=== PATIENT | female | born 1950 | race African-American/Black ===

== ENCOUNTER 2019-09-22 10:49 | Inpatient (IN) | payer OTHER, BC ==
--- NOTE | 2019-09-22 12:10 | PDOC ---
*Physical Exam - Vital Signs Last Vital Signs Temp Pulse Resp BP Pulse Ox 98.6 F 91 H 18 129/81 96 09/22/19 11:00 09/22/19 11:00 09/22/19 11:00 09/22/19 11:00 09/22/19 11:00 ED Treatment Course - LABORATORY CBC & Chemistry Diagram: 09/22/19 13:50 09/22/19 13:50 Medical Decision Making - Medical Decision Making 09/22/19 12:35 69 y/o female with HTN, B/L pleural effusions (20 years previous) here today with one day h/o R sided chest pain, "gas" like pain. No relief of pain with antacids Pain worse with breathing, non-radiating, tender to palpation. Discharge - Discharge Information Clinical Impression/Diagnosis: Chest pain Condition: Stable - Follow up/Referral Referrals: Enoch Hensley [Primary Care Provider] - - Patient Discharge Instructions - Post Discharge Activity
--- NOTE | 2019-09-22 12:44 | PDOC ---
History of Present Illness - General Chief Complaint: Chest Pain Stated Complaint: SOB/CHEST PAIN Time Seen by Provider: 09/22/19 11:39 History Source: Patient Exam Limitations: No Limitations - History of Present Illness Initial Comments: 09/22/19 12:43 Cony Pearl is a 69F with PMH HTN, idiopathic bilateral pulmonary effusions, presenting with one day constant chest pain under R breast. 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 Unable to take deep breaths due to the pain, pain worse with deep breathing. No trauma to chest. Denies any upper chest pain, palpitations, nausea, vomiting, constipation, diarrhea. Had normal BM earlier today. Sayelvin had a similar pain 20 years ago when she had bilateral pleural effusions and was diuresed in the hospital. Has chronic RLE swelling which her PMD at [facility] says is lymphedema. Gets cardiac eval every year, had a syncopal episode a few years ago, reports no findings from yearly ECG. Denies hormone use, recent travel, history of blood clots, cancer. Daily med is Diovan. Allergy to cefaclor. Denies tobacco/drug/alcohol use. Past History - Past Medical History Allergies/Adverse Reactions: Allergies Allergy/AdvReac Type Severity Reaction Status Date / Time cefaclor [From [facility], 1928–1983] Allergy Verified 09/22/19 10:58 Home Medications: Ambulatory Orders Valsartan/Hydrochlorothiazide [Diovan Hct 160-25 mg Tablet] 1 combo PO DAILY Potassium Bicarb/Mag Combo 21 [Magnesium Fizz-Plus Powder] 183 gm PO ASDIR 09/22 Simethicone [Gas Relief 80] 80 mg PO DAILY 09/22/19 COPD: No HTN: Yes - Psycho Social/Smoking Cessation Hx Smoking History: Never smoked Hx Alcohol Use: No Drug/Substance Use Hx: No Review of Systems - Review of Systems Able to Perform ROS?: Yes Constitutional: No: Chills, Fever HEENTM: No: Nose Pain, Nose Congestion Respiratory: Yes: Cough. No: Shortness of Breath, Wheezing, Productive cough Cardiac (ROS): Yes: Chest Pain, Edema. No: Lightheadedness, Palpitations, Syncope, Chest Tightness ABD/GI: No: Constipated, Diarrhea, Nausea, Poor Appetite, Poor Fluid Intake, Vomiting : No: Symptoms Reported Musculoskeletal: No: Symptoms Reported Integumentary: No: Symptoms Reported Neurological: No: Symptoms reported Endocrine: No: Symptoms Reported Hematologic/Lymphatic: No: Symptoms Reported All Other Systems: Reviewed and Negative *Physical Exam - Vital Signs Last Vital Signs Temp Pulse Resp BP Pulse Ox 98.6 F 91 H 18 129/81 96 09/22/19 11:00 09/22/19 11:00 09/22/19 11:00 09/22/19 11:00 09/22/19 11:00 - Physical Exam General Appearance: Yes: Nourished, Appropriately Dressed, Mild Distress, Obese HEENT: positive: EOMI, YOHAN, Normal ENT Inspection, Normal Voice, Symmetrical, Pharynx Normal, Hearing Grossly Normal. negative: Scleral Icterus (R), Scleral Icterus (L), Pharyngeal Erythema, Tonsillar Exudate, Tonsillar Erythema Neck: positive: Trachea midline, Supple. negative: Tender, Lymphadenopathy (R) , Lymphadenopathy (L) Respiratory/Chest: positive: Chest Tender (TTP below R breast, no evidence of rib fracture), Decreased Breath Sounds (shallow breathing bilaterally), Other ( no rash or bruising under R breast). negative: Normal Breath Sounds, Respiratory Distress, Accessory Muscle Use, Labored Respiration, Crackles, Rales , Rhonchi, Stridor, Wheezing Cardiovascular: positive: Regular Rhythm, Regular Rate. negative: Murmur Gastrointestinal/Abdominal: positive: Normal Bowel Sounds, Soft, Protuberent. negative: Tender, Organomegaly, Pulsatile Mass, Rebound Musculoskeletal: positive: Normal Inspection. negative: CVA Tenderness, Vertebral Tenderness Extremity: positive: Normal Capillary Refill, Normal Inspection, Normal Range of Motion, Pelvis Stable, Pedal Edema (1+ RLE), Swelling (1+ RLE), Other (gait normal). negative: Tender, Calf Tenderness Integumentary: positive: Normal Color, Dry, Warm Neurologic: positive: Fully Oriented, Alert, Normal Mood/Affect, Normal Response ED Treatment Course - LABORATORY CBC & Chemistry Diagram: 09/23/19 08:15 09/23/19 08:15 Medical Decision Making - Medical Decision Making 09/22/19 13:41 Patient has known history of pleural effusions and chronic RLE edema presenting with acute onset chest pain under her right breast that worsens with breathing. VS stable, exam finds TTP to right chest with shallow breathing 2/2 pain but breath sounds all barrientos, no crackles at bases but limited by shallow breath. Ddx includes repeat pleural effusion, PE, PNA, costochondritis, or GI pathology such as GB disease, pancreatitis. ACS less liekly given stable VS, reproducible pain, and constant pain for over 12 hours - CMP/CBC for eval infection - CP/ECG/CXR for eval ACS, pulmonary effusion - Coags for eval clotting - Ofirmev for pain CXR shows bibasilar atelectasis and pleural reaction with poor inspiratory effort, no obvious effusions. ECG shows NSR with HR 95, QRS 86, QTc 452, no TWI or ischemic changes. Bedside US shows small pleural effusions in lungs. Getting CTA and RLE US for evaluation of PE and effusions. 09/22/19 14:40 Labs notable for: - CMP WNL - CBC WNL - trop negative - Cr 1.1, stable for CTA 09/22/19 16:32 CTA read as probable left lower lobe semental embolism with bilbasilar atelectasis. RLE US shows no DVT. PE present in left lung but pleuritic pain under R breast, improved with Ofirmev but still present, possible costocondritis to R side on top of concurrent PE vs. referred pain. No obvious hepatic pathology noted on CT, labs , or PE. 09/22/19 16:40 Heaprin bolus 80/kg ordered with 18mg/kg/hr drip ordered. 09/22/19 17:40 Discussed case with kandi Givens for admission to his service to [facility] for PE and heparinization. Discharge - Discharge Information Problems reviewed: Yes Clinical Impression/Diagnosis: Chest pain Qualifiers: Chest pain type: chest pain on breathing Qualified Code(s): R07.1 - Chest pain on breathing Pulmonary embolism Qualifiers: Pulmonary embolism type: single subsegmental (without acute cor pulmonale) Qualified Code(s): I26.93 - Single subsegmental pulmonary embolism without acute cor pulmonale Condition: Stable - Follow up/Referral - Patient Discharge Instructions - Post Discharge Activity
[2019-09-22] MEDS ORDERED: ACETAMINOPHEN 1000 MG/100 ML VIAL (NON FORMULARY) IVPB ONE (13:00)
[2019-09-22] MEDS ORDERED: ACETAMINOPHEN INJECTION 100 ML IVPB ONE (13:24)
[2019-09-22 14:09] LABS: BASO % 0.3 % (0-2.0); EOS % 0.3 % (0-4.5); HEMATOCRIT 39.1 % (32.4-45.2); HEMOGLOBIN 13.4 GM/dL (10.7-15.3); LYMPH % 17.8 % (8-40); MCH 32.5 pg (25.7-33.7); MCHC 34.4 g/dl (32.0-36.0); MEAN CELL VOLUME 94.5 fl (80-96); MEAN PLT VOLUME 7.5 fl (7.5-11.1); MONO % 10.5 % (3.8-10.2); NEUT % 71.1 % (42.8-82.8); PLATELET COUNT 295 K/MM3 (134-434); RBC 4.14 M/mm3 (3.60-5.2); RDW 12.6 % (11.6-15.6); WHITE BLOOD COUNT 7.6 K/mm3 (4.0-10.0)
[2019-09-22 14:22] LABS: INR 1.15 (0.83-1.09); PROTHROMBIN TIME (PATIENT) 13.6 SEC (9.7-13.0)
[2019-09-22 14:24] LABS: ACTIVATED PTT 26.6 SECONDS (25.2-36.5)
[2019-09-22 14:40] LABS: ALBUMIN 3.7 g/dl (3.4-5.0); ALK PHOS 92 U/L (45-117); ANION GAP 7 MMOL/L (8-16); BILIRUBIN,TOTAL 0.9 mg/dL (0.2-1); BLOOD UREA NITROGEN 9.9 mg/dL (7-18); CALCIUM 8.9 mg/dL (8.5-10.1); CHLORIDE 102 mmol/L (98-107); CO2 30 mmol/L (21-32); CREATININE 1.1 mg/dL (0.55-1.3); GLUCOSE,RANDOM 93 mg/dL (74-106); LIPASE 83 U/L (73-393); POTASSIUM 3.5 mmol/L (3.5-5.1); SGOT/AST 21 U/L (15-37); SGPT/ALT 27 U/L (13-61); SODIUM 138 mmol/L (136-145); TOT PROT 7.6 g/dl (6.4-8.2)
--- NOTE | 2019-09-22 15:42 | PDOC ---
Documentation entered by Ricardo Arias SCRIBE, acting as scribe for Jules Lozada MD. Jules Lozada MD: This documentation has been prepared by the Hugo valladares Xhesika, SCRIBE, under my direction and personally reviewed by me in its entirety. I confirm that the documentation accurately reflects all work, treatment, procedures, and medical decision making performed by me. Attending Attestation - Resident Resident Name: Reji Green - ED Attending Attestation I have performed the following: I have examined & evaluated the patient, The case was reviewed & discussed with the resident, I agree w/resident's findings & plan, Exceptions are as noted - HPI HPI: 09/22/19 12:47 The patient is a 69 year old female, with a PMH of HTN and bilateral effusion who presents to the ED for right sided chest pain and SOB. Pt describes her pain as sharp, severe pain, worsened with deep inspiration and when laying down. The patient denies headaches and dizziness. Denies fever, chills, cough, nausea , vomiting, and constipation. Denies frequency, urgency and hematuria. Allergy: cefaclor Social: Denies alcohol, cigarette or drug use. PCP: Sylvia Davidson - Physicial Exam PE: 09/22/19 12:49 Vitals: Triage Vital signs reviewed General Appearance: no acute distress, well nourished well developed, Neck: Supple;No Nuchal rigidity Chest Wall: Nontender Cardiac: Regular rate and rhythm, no murmurs, no rubs, no gallops, Lungs: + shallow breathes. + Pain with deep inspiration. Clear to auscultation bilaterally Abdomen: +Severe RUQ pain TTP. Soft, nondistended, normal bowel sounds Extremities: Full range of motion to all extremities, no cyanosis, clubbing, or edema Skin: Warm and dry, no rashes or lesions, no petechiae Psych: normal mood, normal affect - Medical Decision Making 09/22/19 16:57 Moderate to severe right lung discomfort CTA ith evidence of subsegmental PE Given persistence of pain and unclear etiology of pleural effusion will admit to medicine for further management
[2019-09-22] MEDS ORDERED: HEPARIN NA (PORCINE) 5,000 UNITS/ML 1ML VIAL IVPUSH ONE (16:35)
[2019-09-22] MEDS ORDERED: HEPARIN INFUSION - 25,000 UNITS/500 ML INFUS.BAG IVPB ONE (17:08)
[2019-09-22] MEDS ORDERED: HEPARIN NA (PORCINE) 5,000 UNITS/ML 1ML VIAL ONE (17:08)
[2019-09-22] MEDS: HEPARIN SOD,PORK IN 0.45% NACL 25,000 UNITS/500 ML INFUS.BAG IVPB SCH (17:38)
--- NOTE | 2019-09-22 18:19 | HP ---
CHIEF COMPLAINT:Left-sided chest pain for last 1 to 2 days PCP: HISTORY OF PRESENT ILLNESS:Cony Pearl is a 69F with PMH HTN, idiopathic bilateral pulmonary effusions, presenting with one day constant chest pain under R breast. 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 Unable to take deep breaths due to the pain, pain worse with deep breathing. No trauma to chest. Denies any upper chest pain, palpitations, nausea, vomiting, constipation, diarrhea. Had normal BM earlier today. Annette had a similar pain 20 years ago when she had bilateral pleural effusions and was diuresed in the hospital. Has chronic RLE swelling which her PMD at [facility] says is lymphedema. Gets cardiac eval every year, had a syncopal episode a few years ago, reports no findings from yearly ECG. Denies hormone use, recent travel, history of blood clots, cancer ER course was notable for:Chest pain on the right side under the breast but pain on the pulmonary embolism on the left side (1) (2) (3) Recent Travel:None PAST MEDICAL HISTORY:Hypertension and idiopathic pulmonary effusion both sides PAST SURGICAL HISTORY:None Social History:No history of smoking alcohol or drug use Smoking: Alcohol: Drugs: Allergies cefaclor [From [facility]] Allergy (Verified 09/22/19 10:58) HOME MEDICATIONS: Home Medications Medication Instructions Recorded Valsartan/Hydrochlorothiazide 1 combo PO DAILY 03/15/16 [Diovan Hct 160-25 mg Tablet] Potassium Bicarb/Mag Combo 21 183 gm PO ASDIR 09/22/19 [Magnesium Fizz-Plus Powder] Simethicone [Gas Relief 80] 80 mg PO DAILY 09/22/19 REVIEW OF SYSTEMS CONSTITUTIONAL: Absent: fever, chills, diaphoresis, generalized weakness, malaise, loss of appetite, weight change HEENT: Absent: rhinorrhea, nasal congestion, throat pain, throat swelling, difficulty swallowing, mouth swelling, ear pain, eye pain, visual changes CARDIOVASCULAR: Presentt chest pain, Absent syncope, palpitations, irregular heart rate, lightheadedness, peripheral edema RESPIRATORY: Absent: cough, shortness of breath, dyspnea with exertion, orthopnea, wheezing, stridor, hemoptysis GASTROINTESTINAL: Absent: abdominal pain, abdominal distension, nausea, vomiting, diarrhea, constipation, melena, hematochezia GENITOURINARY: Absent: dysuria, frequency, urgency, hesitancy, hematuria, flank pain, genital pain MUSCULOSKELETAL: Absent: myalgia, arthralgia, joint swelling, back pain, neck pain SKIN: Absent: rash, itching, pallor HEMATOLOGIC/IMMUNOLOGIC: Absent: easy bleeding, easy bruising, lymphadenopathy, frequent infections ENDOCRINE: Absent: unexplained weight gain, unexplained weight loss, heat intolerance, cold intolerance NEUROLOGIC: Absent: headache, focal weakness or paresthesias, dizziness, unsteady gait, seizure, mental status changes, bladder or bowel incontinence PSYCHIATRIC: Absent: anxiety, depression, suicidal or homicidal ideation, hallucinations. PHYSICAL EXAMINATION Vital Signs - 24 hr 09/22/19 11:00 Temperature 98.6 F Pulse Rate 91 H Respiratory 18 Rate Blood Pressure 129/81 O2 Sat by Pulse 96 Oximetry (%) GENERAL: Awake, alert, and fully oriented, in no acute distress. HEAD: Normal with no signs of trauma. EYES: Pupils equal, round and reactive to light, extraocular movements intact, sclera anicteric, conjunctiva clear. No lid lag. EARS, NOSE, THROAT: Ears normal, nares patent, oropharynx clear without exudates. Moist mucous membranes. NECK: Normal range of motion, supple without lymphadenopathy, JVD, or masses. LUNGS: Breath sounds equal, clear to auscultation bilaterally. No wheezes, and no crackles. No accessory muscle use. HEART: Regular rate and rhythm, normal S1 and S2 without murmur, rub or gallop. ABDOMEN: Soft, nontender, not distended, normoactive bowel sounds, no guarding, no rebound, no masses. No hepatomegaly or splenomegaly. MUSCULOSKELETAL: Normal range of motion at all joints. No bony deformities or tenderness. No CVA tenderness. UPPER EXTREMITIES: 2+ pulses, warm, well-perfused. No cyanosis. No clubbing. No peripheral edema. LOWER EXTREMITIES: 2+ pulses, warm, well-perfused. No calf tenderness. No peripheral edema. NEUROLOGICAL: Cranial nerves II-XII intact. Normal speech. Normal gait. PSYCHIATRIC: Cooperative. Good eye contact. Appropriate mood and affect. SKIN: Warm, dry, normal turgor, no rashes or lesions noted, normal capillary refill. Laboratory Results - last 24 hr 09/22/19 09/22/19 09/22/19 13:50 13:50 13:50 WBC 7.6 RBC 4.14 Hgb 13.4 Hct 39.1 MCV 94.5 MCH 32.5 MCHC 34.4 RDW 12.6 Plt Count 295 MPV 7.5 Absolute Neuts (auto) 5.4 Neutrophils % 71.1 Lymphocytes % 17.8 Monocytes % 10.5 H Eosinophils % 0.3 Basophils % 0.3 Nucleated RBC % 0 PT with INR INR PTT (Actin FS) Sodium 138 Potassium 3.5 Chloride 102 Carbon Dioxide 30 Anion Gap 7 L BUN 9.9 Creatinine 1.1 Est GFR (CKD-EPI)AfAm 60.16 Est GFR (CKD-EPI)NonAf 51.91 Random Glucose 93 Calcium 8.9 Total Bilirubin 0.9 AST 21 ALT 27 Alkaline Phosphatase 92 Creatine Kinase 236 H Creatine Kinase Index 0.5 CK-MB (CK-2) 1.2 Troponin I < 0.02 B-Natriuretic Peptide 44.9 Total Protein 7.6 Albumin 3.7 Lipase 83 09/22/19 13:50 WBC RBC Hgb Hct MCV MCH MCHC RDW Plt Count MPV Absolute Neuts (auto) Neutrophils % Lymphocytes % Monocytes % Eosinophils % Basophils % Nucleated RBC % PT with INR 13.60 H INR 1.15 H PTT (Actin FS) 26.6 Sodium Potassium Chloride Carbon Dioxide Anion Gap BUN Creatinine Est GFR (CKD-EPI)AfAm Est GFR (CKD-EPI)NonAf Random Glucose Calcium Total Bilirubin AST ALT Alkaline Phosphatase Creatine Kinase Creatine Kinase Index CK-MB (CK-2) Troponin I B-Natriuretic Peptide Total Protein Albumin Lipase ASSESSMENT/PLAN: Cony Pearl is a 69F with PMH HTN, idiopathic bilateral pulmonary effusions, presenting with one day constant chest pain under R breast.And lung scan showed she had pulmonary embolism on the left side Will start on IV heparin protocol Pulmonary evaluation by residential advisor for chest pain on the opposite side. And pleural effusion For gastric acid reflux will start Pepcid 20 mg twice a day Hypertension renew her medication which is Diovan 80 mg once a day Visit type - Emergency Visit Emergency Visit: Yes ED Registration Date: 09/22/19 Care time: The patient presented to the Emergency Department on the above date and was hospitalized for further evaluation of their emergent condition. - New Patient This patient is new to me today: Yes Date on this admission: 09/22/19 - Critical Care Critical Care patient: No
[2019-09-22] MEDS: FAMOTIDINE 20 MG TABLET PO SCH (21:41)
[2019-09-23 01:11] LABS: INR 1.23 (0.83-1.09); PROTHROMBIN TIME (PATIENT) 14.5 SEC (9.7-13.0)
[2019-09-23 01:13] LABS: ACTIVATED PTT 42.1 SECONDS (25.2-36.5)
[2019-09-23] MEDS ORDERED: HEPARIN NA (PORCINE) 5,000 UNITS/ML 1ML VIAL IVPUSH ONE ×2 (02:12)
[2019-09-23 02:32] VITALS: BMI 35.2
[2019-09-23 08:49] LABS: BASO % 0.2 % (0-2.0); EOS % 0.5 % (0-4.5); HEMATOCRIT 34.9 % (32.4-45.2); HEMOGLOBIN 11.9 GM/dL (10.7-15.3); MCH 31.9 pg (25.7-33.7); MCHC 34.1 g/dl (32.0-36.0); MEAN CELL VOLUME 93.6 fl (80-96); MEAN PLT VOLUME 7.7 fl (7.5-11.1); MONO % 9.6 % (3.8-10.2); NEUT % 70.7 % (42.8-82.8); PLATELET COUNT 268 K/MM3 (134-434); RBC 3.72 M/mm3 (3.60-5.2); RDW 12.6 % (11.6-15.6); WHITE BLOOD COUNT 8.3 K/mm3 (4.0-10.0)
[2019-09-23] MEDS: FAMOTIDINE 20 MG TABLET PO SCH ×2 (09:41→21:40)
[2019-09-23] MEDS: HEPARIN SOD,PORK IN 0.45% NACL 25,000 UNITS/500 ML INFUS.BAG IVPB SCH (09:42)
[2019-09-23] MEDS: VALSARTAN 80 MG TABLET (UD) PO SCH (09:42)
[2019-09-23 09:50] LABS: BLOOD UREA NITROGEN 8.6 mg/dL (7-18); CALCIUM 8.4 mg/dL (8.5-10.1); CREATININE 0.9 mg/dL (0.55-1.3); POTASSIUM 3.6 mmol/L (3.5-5.1)
[2019-09-23] MEDS ORDERED: HEPARIN NA (PORCINE) 5,000 UNITS/ML 1ML VIAL IVPUSH PRN ×2 (10:06)
[2019-09-23] MEDS: ACETAMINOPHEN 325 MG TABLET (FP) PO PRN (10:49)
--- NOTE | 2019-09-23 11:21 | PN ---
Progress Note (short form) - Note Progress Note: Feels better but still have pain on the right side of the chest pleuritic no fever no chills on IV heparin for pulmonary embolism. Vital Signs Period Temp Pulse Resp BP Sys/Goodwin Pulse Ox Last 24 Hr 98 F-98.8 F 78-85 18-18 112-127/68-87 96-98 Head no headache no dizziness Ear nose throat no epistaxis Cardiovascular Chest pain on the right side on breathing Pulmonary no wheezing no coughing GI no abdominal pain Endocrine no history of diabetes hypothyroidism Neuro no history of stroke Dermatology no history of stroke Locomotor no history of joint pain Rest of review of systems are negative Examination Patient is comfortable HEENT normal Neck supple no JVD Lungs clear no wheezing Abdomen nontender no organomegaly bowel sounds normal Extremities no edema no cyanosis normal pulses Neurologically he is alert awake oriented, nonfocal Skin no rash noted CBC, BMP 09/23/19 08:15 09/23/19 08:15 Laboratory Results - last 24 hr 09/22/19 09/22/19 09/22/19 13:50 13:50 13:50 WBC 7.6 RBC 4.14 Hgb 13.4 Hct 39.1 MCV 94.5 MCH 32.5 MCHC 34.4 RDW 12.6 Plt Count 295 MPV 7.5 Absolute Neuts (auto) 5.4 Neutrophils % 71.1 Lymphocytes % 17.8 Monocytes % 10.5 H Eosinophils % 0.3 Basophils % 0.3 Nucleated RBC % 0 PT with INR INR PTT (Actin FS) Sodium 138 Potassium 3.5 Chloride 102 Carbon Dioxide 30 Anion Gap 7 L BUN 9.9 Creatinine 1.1 Est GFR (CKD-EPI)AfAm 60.16 Est GFR (CKD-EPI)NonAf 51.91 Random Glucose 93 Calcium 8.9 Total Bilirubin 0.9 AST 21 ALT 27 Alkaline Phosphatase 92 Creatine Kinase 236 H Creatine Kinase Index 0.5 CK-MB (CK-2) 1.2 Troponin I < 0.02 B-Natriuretic Peptide 44.9 Total Protein 7.6 Albumin 3.7 Lipase 83 09/22/19 09/22/19 09/23/19 13:50 19:40 00:51 WBC RBC Hgb Hct MCV MCH MCHC RDW Plt Count MPV Absolute Neuts (auto) Neutrophils % Lymphocytes % Monocytes % Eosinophils % Basophils % Nucleated RBC % PT with INR 13.60 H 14.50 H INR 1.15 H 1.23 H PTT (Actin FS) 26.6 42.1 H Sodium Potassium Chloride Carbon Dioxide Anion Gap BUN Creatinine Est GFR (CKD-EPI)AfAm Est GFR (CKD-EPI)NonAf Random Glucose Calcium Total Bilirubin AST ALT Alkaline Phosphatase Creatine Kinase 193 H Creatine Kinase Index 0.6 CK-MB (CK-2) 1.20 Troponin I < 0.02 B-Natriuretic Peptide Total Protein Albumin Lipase 09/23/19 09/23/19 09/23/19 08:15 08:15 08:15 WBC 8.3 RBC 3.72 Hgb 11.9 Hct 34.9 MCV 93.6 MCH 31.9 MCHC 34.1 RDW 12.6 Plt Count 268 MPV 7.7 Absolute Neuts (auto) 5.9 Neutrophils % 70.7 Lymphocytes % 19.0 Monocytes % 9.6 Eosinophils % 0.5 Basophils % 0.2 Nucleated RBC % 0 PT with INR INR PTT (Actin FS) 76.9 H Sodium 137 Potassium 3.6 Chloride 103 Carbon Dioxide 28 Anion Gap 6 L BUN 8.6 Creatinine 0.9 Est GFR (CKD-EPI)AfAm 76.68 Est GFR (CKD-EPI)NonAf 66.16 Random Glucose 104 Calcium 8.4 L Total Bilirubin AST ALT Alkaline Phosphatase Creatine Kinase Creatine Kinase Index CK-MB (CK-2) Troponin I B-Natriuretic Peptide Total Protein Albumin Lipase Assessment and plan Acute pulmonary embolism Continue IV heparin and follow protocol for PTT. Chest pain pleuritic rule out cause pulmonary consult has been requested discussed with the mobile crane operator and continue Tylenol until then. Hypertension controlled continue Diovan Activity and diet as tolerated. Visit type - Emergency Visit Emergency Visit: Yes ED Registration Date: 09/22/19 Care time: The patient presented to the Emergency Department on the above date and was hospitalized for further evaluation of their emergent condition. - New Patient This patient is new to me today: No - Critical Care Critical Care patient: No - Discharge Referral Referred to [facility] Med P.C.: No
--- NOTE | 2019-09-23 13:36 | EKG ---
Test Reason : Blood Pressure : / mmHG Vent. Rate : 095 BPM Atrial Rate : 095 BPM P-R Int : 152 ms QRS Dur : 086 ms QT Int : 360 ms P-R-T Axes : 046 -15 035 degrees QTc Int : 452 ms NORMAL SINUS RHYTHM POSSIBLE LEFT ATRIAL ENLARGEMENT LEFT VENTRICULAR HYPERTROPHY ABNORMAL ECG WHEN COMPARED WITH ECG OF 24-APR-2000 14:13, VENT. RATE HAS INCREASED BY 31 BPM QT HAS LENGTHENED Confirmed by TODD LAWLER MD ([id number]) on 09/23/2019 1:36:17 PM Referred By: Confirmed By:TODD LAWLER MD
--- NOTE | 2019-09-23 15:03 | CON.PULM ---
Consult Consult Specialty:: PULM/CCM Referred by:: Hospitalist Reason for Consultation:: PE - History of Present Illness Chief Complaint: Right chest pain History of Present Illness: 69 F, HTN and bilateral pulmonary effusions (20 years ago ; etiology was unclear but no direct sampling was performed). Admitted via the ER due to sharp pain under her right breast. No fever or chills. No hemoptysis or night sweats. Reports that she has been unble to take deep breaths due to the pain. Pain is worse with deep breathing. No fall or trauma. No periods of immobilization. No personal or family history of VTE. CT Chest: LLL PE / small pleural effusions - History Source History Provided By: Patient Limitations to Obtaining History: No Limitations - Past Medical History Pulmonary: No: Asthma, Bronchitis, Cancer, COPD, O2 Dependent, Pneumonia, Previously Intubated, Pulmonary Embolus, Pulmonary Fibrosis, Sleep Apnea - Alcohol/Substance Use Hx Alcohol Use: No - Smoking History Smoking history: Never smoked Home Medications - Allergies Allergies/Adverse Reactions: Allergies Allergy/AdvReac Type Severity Reaction Status Date / Time cefaclor [From Ceclor] Allergy Verified 09/22/19 10:58 - Home Medications Home Medications: Ambulatory Orders Valsartan/Hydrochlorothiazide [Diovan Hct 160-25 mg Tablet] 1 combo PO DAILY Potassium Bicarb/Mag Combo 21 [Magnesium Fizz-Plus Powder] 183 gm PO ASDIR 09/22 Simethicone [Gas Relief 80] 80 mg PO DAILY 09/22/19 Review of Systems - Review of Systems Constitutional: denies: Chills, Fever, Loss of Appetite, Night Sweats Eyes: reports: No Symptoms HENT: reports: No Symptoms Neck: reports: No Symptoms Cardiovascular: reports: Chest Pain, Edema, Shortness of Breath. denies: Palpitations Respiratory: reports: Cough, Snoring, SOB, SOB on Exertion. denies: Hemoptysis , Orthopnea, PND, Wheezing Gastrointestinal: reports: No Symptoms Genitourinary: reports: No Symptoms Breasts: reports: No Symptoms Reported Musculoskeletal: reports: No Symptoms Integumentary: reports: No Symptoms Neurological: reports: No Symptoms Endocrine: reports: No Symptoms Hematology/Lymphatic: reports: No Symptoms Psychiatric: reports: No Symptoms Physical Exam Vital Sings: Vital Signs Temperature 98 F 09/23/19 10:00 Pulse Rate 80 09/23/19 10:00 Respiratory Rate 18 09/23/19 10:00 Blood Pressure 115/72 09/23/19 10:00 O2 Sat by Pulse Oximetry (%) 96 09/22/19 21:40 Constitutional: Yes: No Distress, Calm, Obese Eyes: Yes: Conjunctiva Clear, EOM Intact HENT: Yes: Atraumatic, Normocephalic Neck: Yes: Supple, Trachea Midline Cardiovascular: Yes: Regular Rate and Rhythm Respiratory: Yes: Diminished, On Nasal O2. No: Accessory Muscle Use, Rales, Rhonchi, SOB, SOB on Exertion, Stridor, Tachypnea, Wheezes ...Inspection: Yes: WNL ...Clubbing: No Gastrointestinal: Yes: Normal Bowel Sounds, Soft, Abdomen, Obese Renal/: Yes: WNL Musculoskeletal: Yes: WNL Extremities: Yes: WNL Edema: Yes Peripheral Pulses WNL: Yes Integumentary: Yes: WNL Neurological: Yes: WNL, Alert, Oriented ...Motor Strength: WNL Psychiatric: Yes: WNL, Alert, Oriented Labs: CBC, BMP 09/23/19 08:15 09/23/19 08:15 Imaging - Results Chest X-ray: Report Reviewed, Image Reviewed Cat Scan: Report Reviewed, Image Reviewed Problem List - Problems (1) Pleural effusion Code(s): J90 - PLEURAL EFFUSION, NOT ELSEWHERE CLASSIFIED (2) Shortness of breath Code(s): R06.02 - SHORTNESS OF BREATH (3) Chest pain Code(s): R07.9 - CHEST PAIN, UNSPECIFIED Qualifiers: Chest pain type: chest pain on breathing Qualified Code(s): R07.1 - Chest pain on breathing; R07.81 - Pleurodynia (4) Pulmonary embolism Code(s): I26.99 - OTHER PULMONARY EMBOLISM WITHOUT ACUTE COR PULMONALE Qualifiers: Pulmonary embolism type: single subsegmental (without acute cor pulmonale) Qualified Code(s): I26.93 - Single subsegmental pulmonary embolism without acute cor pulmonale Assessment/Plan IMP: (?) referred pain to the right or likely musculoskeletal in origin PLAN: IV Heparin has been started: can transition to Eliquis 10mg BID x 7 days then 5mg BID ECHO LLL Doppler Heme evaluation either as inpatient or outpatient Sleep screen was positive so will have sleep apnea testing No smoking Will follow Thank you. Dr Acevedo WILLIS Screen - WILLIS History Previously diagnosed with Sleep Apnea: No If Yes, currently using CPAP to treat your WILLIS: No - SNORING Do you snore loudly (enough to be heard thru closed doors)?: No - TIRED Do you often feel tired, fatigued, or sleepy during daytime?: Yes - OBSERVED Has anyone observed you stop breathing during your sleep?: No - BLOOD PRESSURE Do you have or are being treated for high blood pressure?: Yes - BMI Answer Y if weight exceeds amount listed for your height: Yes .: HEIGHT & WEIGHT (lbs): 4'10" 167lbs; 4'11" 175 lbs; 5'0" 179lbs;. 5 '1" 185lbs; 5'2" 191lbs; 5'3" 197lbs;. 5'4" 204lbs; 5'5" 210lbs; 5'6" 216lbs;. 5'7" 223lbs; 5'8" 230lbs; 5'9" 237lbs;. 5'10" 243lbs ; 511" 250lbs; 6' 258lbs;. 6'1" 265lbs; 6'2" 272lbs; 6'3" 279lbs ;. 6'4" 287lbs; 6'5" 295lbs - AGE Is your age over 50 yrs old?: Yes - NECK CIRCUMFERENCE Neck Circumference 40cm: No - GENDER Male: No - SCORE Total Score: 4 Score Interpretation: Intermediate Risk of WILLIS .: Interpretation: Score 0-2: Low Risk WILLIS. Score 3-4: Intermediate Risk WILLIS. Score 5-8: High Risk WILLIS
[2019-09-24 07:29] LABS: HEMATOCRIT 34.1 % (32.4-45.2); HEMOGLOBIN 11.7 GM/dL (10.7-15.3); MCH 32.3 pg (25.7-33.7); MCHC 34.4 g/dl (32.0-36.0); MEAN CELL VOLUME 94.1 fl (80-96); PLATELET COUNT 265 K/MM3 (134-434); RBC 3.62 M/mm3 (3.60-5.2); RDW 12.3 % (11.6-15.6); WHITE BLOOD COUNT 6.3 K/mm3 (4.0-10.0)
[2019-09-24 09:16] VITALS: BP 109/69; PULSE 78; TEMP 98.8
--- NOTE | 2019-09-24 09:38 | DS ---
Physical Exam: SUBJECTIVE: Patient seen and examined She has no chest pain no shortness of breath complain of slight back pain advised to take some Tylenol. OBJECTIVE: Vital Signs Period Temp Pulse Resp BP Sys/Goodwin Pulse Ox Last 24 Hr 98 F-99.3 F 74-83 18-20 86-116/62-81 98 PHYSICAL EXAM GENERAL: The patient is awake, alert, and fully oriented, in no acute distress. HEAD: Normal with no signs of trauma. EYES: PERRL, extraocular movements intact, sclera anicteric, conjunctiva clear. ENT: Ears normal, nares patent, oropharynx clear without exudates, moist mucous membranes. NECK: Trachea midline, full range of motion, supple. LUNGS: Breath sounds equal, clear to auscultation bilaterally, no wheezes, no crackles, no accessory muscle use. HEART: Regular rate and rhythm, S1, S2 without murmur, rub or gallop. ABDOMEN: Soft, nontender, nondistended, normoactive bowel sounds, no guarding, no rebound, no hepatosplenomegaly, no masses. EXTREMITIES: 2+ pulses, warm, well-perfused, no edema. NEUROLOGICAL: Cranial nerves II through XII grossly intact. Normal speech, gait not observed. PSYCH: Normal mood, normal affect. SKIN: Warm, dry, normal turgor, no rashes or lesions noted. LABS Laboratory Results - last 24 hr 09/23/19 09/24/19 09/24/19 08:15 06:02 06:02 WBC 6.3 RBC 3.62 Hgb 11.7 Hct 34.1 MCV 94.1 MCH 32.3 MCHC 34.4 RDW 12.3 Plt Count 265 MPV 8.0 PTT (Actin FS) 65.2 H Sodium 137 Potassium 3.6 Chloride 103 Carbon Dioxide 28 Anion Gap 6 L BUN 8.6 Creatinine 0.9 Est GFR (CKD-EPI)AfAm 76.68 Est GFR (CKD-EPI)NonAf 66.16 Random Glucose 104 Calcium 8.4 L HOSPITAL COURSE: She was admitted to the hospital with chest pain found to have acute pulmonary embolism and bilateral small pleural effusions. She was started on IV heparin followed by Eliquis. She tolerated the medication well repeat labs were okay. For bilateral pleural effusion I requested pulmonary consult and no further testing was ordered and also requested by the paintings conservator to patient should see a lamp shade joiner outpatient basis. Patient sees her primary care doctor at [facility] advice at the request to see a paintings conservator and lamp shade joiner at [facility]. She is going home on medication as follows #1 Eliquis 10 mg twice a day for 7 days followed by Eliquis 5 mg twice a day for next 6 months refills given also she will continue her Diovan 80 mg once a day and as needed Tylenol for the pain. Date of Admission:09/22/19 Date of Discharge: 09/24/19 Minutes to complete discharge: 30 Discharge Summary Problems reviewed: Yes Reason For Visit: PULMONARY EMBOLISM Current Active Problems Chest pain (Acute) Pleural effusion (Acute) Pulmonary embolism (Acute) Shortness of breath (Acute) Condition: Improved - Instructions Diet, Activity, Other Instructions: Discussed with her need of continuous use of anticoagulation for next 6 months after that it has been decided by her doctor about continuation of anticoagulation. There is no direct contraindication. She is also have a chronic pleural effusion advised her to see a lamp shade joiner and follow-up with pulmonary Referrals: Enoch Hensley [Primary Care Provider] - Disposition: HOME - Home Medications Comprehensive Discharge Medication List: Ambulatory Orders Valsartan/Hydrochlorothiazide [Diovan Hct 160-25 mg Tablet] 1 combo PO DAILY Potassium Bicarb/Mag Combo 21 [Magnesium Fizz-Plus Powder] 183 gm PO ASDIR 09/22 Simethicone [Gas Relief 80] 80 mg PO DAILY 09/22/19 Apixaban [Eliquis -] 10 mg PO BID #14 tablet 09/24/19 Apixaban [Eliquis] 5 mg PO BID #60 tablet 09/24/19 This patient is new to me today: Yes Date on this admission: 09/24/19 Emergency Visit: No Critical Care patient: No - Discharge Referral Referred to [facility] No
[2019-09-24] MEDS: VALSARTAN 80 MG TABLET (UD) PO SCH ×2 (09:56→09:58)
[2019-09-24] MEDS: FAMOTIDINE 20 MG TABLET PO SCH (09:56)
[2019-09-24] MEDS ORDERED: APIXABAN 5 MG TABLET PO SCH (10:00)
[2019-09-24] MEDS: ACETAMINOPHEN 325 MG TABLET (FP) PO PRN (10:55)
== END 2019-09-24 12:35 | disposition home or self-care (01) | DRG 176 ==
LOC: JER 10:49 → JERBED 17:27 → J4W 20:50
PROVIDERS: ADMIT Internal Medicine; ATTEND Internal Medicine
DX: I26.93 Single subsegmental thrombotic pulmonary embolism without acute cor pulmonale (principal); J90 Pleural effusion, not elsewhere classified; I10 Essential (primary) hypertension; R07.1 Chest pain on breathing
CPT/HCPCS: 36415; 71046-TC-FY; 71275-TC; 80048; 80053; 82550; 82553; 83690; 83880; 84484; 85025; 85027; 85610; 85730; 93005; 93010; 93971-TC; 99285-25; J0131; J1644; Q9967